=== PATIENT | female | born 1995 | race American Indian/Alaskan Native ===

== ENCOUNTER 2018-10-21 20:25 | Emergency (ER) | payer MEDICAID ==
[2018-10-21 20:25] VITALS: BMI 29.9
[2018-10-21 21:32] VITALS: O2SAT 98
[2018-10-21 22:55] VITALS: BP 129/81; PULSE 120; RESP 16; TEMP 101
--- NOTE | 2018-10-21 23:03 | C.PDOC ---
History Of Present Illness 23 year old female presents to the ER with a complaint of cough associated with generalized body aches and fever for the past one day. Patient states she is diabetic and her sugar was high today but she took her medications this morning. Patient also reports one episode of vomiting at home. She took tylenol at 1800. Denies diarrhea, recent travel, hemoptysis, chest pain, or SOB. HPI: Influenza Time Seen by Provider: 10/21/18 21:55 Chief Complaint: Flu-like Symptoms History Per: Patient Exam Limitations: no limitations Have you had recent travel within the past 21 days to any of the following countries: [place], [place], [place] or [place]?: No Onset/Duration Of Symptoms: Days (1) Symptoms include: fever, bodyaches, cough, vomiting Sick Contacts (Context): None Past Medical History Reviewed: Historical Data, Nursing Documentation, Vital Signs Vital Signs: Last Vital Signs Temp 101.0 F H 10/21/18 22:54 Pulse 120 H 10/21/18 22:54 Resp 16 10/21/18 22:54 BP 129/81 10/21/18 22:54 Pulse Ox 98 10/21/18 22:54 - Medical History PMH: Anemia, Kidney Stones, Pneumonia Denies: Depression, Chronic Kidney Disease - [facility] Procedures DRESSING TECHNIQUES TREATMENT USING ASSIST EQUIPMENT (07/10/18) EXERCISE TRMT MUSCULOSK LOW BACK/LE W AEROBIC EQUIP (07/10/18) GAIT TRAINING/AMBULAT TREATMENT USING ASSIST EQUIPMENT (07/10/18) MANUAL THERAPY TECHNIQUES TREATMENT OF MUSCULOSK LOW BACK/LE (07/10/18) TRANSFER TRAINING TREATMENT USING ASSIST EQUIPMENT (07/10/18) Family History: States: Unknown Family Hx - Social History Hx Tobacco Use: No Hx Alcohol Use: No Hx Substance Use: No Review Of Systems Constitutional: Positive for: Fever Cardiovascular: Negative for: Chest Pain, Palpitations Respiratory: Positive for: Cough. Negative for: Shortness of Breath, Hemoptysis Gastrointestinal: Positive for: Vomiting. Negative for: Diarrhea Musculoskeletal: Positive for: Other (Body aches) Skin: Negative for: Rash Physical Exam - Physical Exam Appears: Non-toxic Skin: Normal Color, Warm, Dry, No Rash Head: Atraumatic, Normacephalic Eye(s): bilateral: Normal Inspection Ear(s): Bilateral: Normal Nose: Normal Oral Mucosa: Moist Throat: Normal, No Erythema, No Exudate Neck: Normal, Supple Chest: Symmetrical, No Tenderness Cardiovascular: Rhythm Regular (Tachycardic) Respiratory: Normal Breath Sounds, No Rales, No Rhonchi, No Wheezing Gastrointestinal/Abdominal: Soft, No Tenderness Back: No CVA Tenderness Neurological/Psych: Oriented x3, Normal Speech Gait: Steady Medical Decision Making Medical Decision Making: CXR was positive for viral pneumonitis. Based on patient's symptoms and clinical presentation, she will be treated for flu; motrin, tamiflu, and prednisone administered. Patient is resting comfortably in the ER in no acute distress, vitals are stable, will discharge home with Rx and instructions to follow up with PMD or return if symptoms worsen. - ECG O2 Sat by Pulse Oximetry: 98 - Radiology X-Ray: Interpreted by Me, Viewed By Me X-Ray Interpretation: Other (Viral pneumonitis) Disposition - Disposition Referrals: José Gibbs MD [Medical Doctor] - Disposition: HOME/ ROUTINE Disposition Time: 23:01 Condition: GOOD Additional Instructions: Follow up with the medical doctor within 1-2 days. Return if worsened. Prescriptions: Benzonatate 200 mg PO TID PRN #30 capsule PRN Reason: Cough Ibuprofen [Motrin] 1 tab PO TID PRN #30 tab PRN Reason: Pain Oseltamivir Cap [Tamiflu] 75 mg PO BID #9 cap predniSONE [Prednisone] 10 mg PO BID #10 tab Instructions: Flu, Adult (DC) Forms: [facility] ([place]ian) - Clinical Impression Clinical Impression: Influenza-like illness - PA / UNITIZER / Resident Statement MD/DO has reviewed & agrees with the documentation as recorded. - Scribe Statement The provider has reviewed the documentation as recorded by the Scribe Alonzo Dumont All medical record entries made by the Scribe were at my direction and personally dictated by me. I have reviewed the chart and agree that the record accurately reflects my personal performance of the history, physical exam, medical decision making, and the department course for this patient. I have also personally directed, reviewed, and agree with the discharge instructions and disposition.
--- NOTE | 2018-10-22 10:24 | RAD ---
HISTORY: cough, fever COMPARISON: None available. TECHNIQUE: Chest PA and lateral FINDINGS: LUNGS: Mild atelectasis in the right hilar/infrahilar region. Please note that chest x-ray has limited sensitivity for the detection of pulmonary masses. PLEURA: No significant pleural effusion identified. No definite pneumothorax . CARDIOVASCULAR: Heart size appears within normal limits. No atherosclerotic calcification present. OSSEOUS STRUCTURES: No acute osseous abnormality identified. VISUALIZED UPPER ABDOMEN: Unremarkable. OTHER FINDINGS: None. IMPRESSION: Mild atelectasis in the right hilar/infrahilar region.
== END 2018-10-21 23:42 | disposition home or self-care (01) ==
LOC: C.ER 20:25
DX: J11.1 Influenza due to unidentified influenza virus with other respiratory manifestations (principal)